=== PATIENT | male | born 1955 | race Caucasian/White ===

== ENCOUNTER → 2018-02-08 | Day surgery (SDC) | payer BC, OTHER ==
[2018-02-07 09:21] VITALS: Ht 185.4 cm; Wt 113.6 kg
[~2018-02-08] VITALS: Ht 185.4 cm; Wt 113.6 kg
[~2018-02-08] MED LIST: ARTHRITIS PAIN PO; ATROPINE SULFATE 0.1 MG/ML 5ML SYR IV PRN; EFF375 PO; EpHEDrine SULFATE INJ 50 MG/ML AMP IV PRN; INDO-24 PO; LIDOCAINE HCL 2% 2 ML VIAL (20MG/ML) ONE; MIDAZOLAM HCL 1 MG/ML 2ML VIAL ONE; ONDANSETRON INJ 2 MG/ML 2 ML VIAL ONE; PROPOFOL IV EMULSION 10 MG/ML 20 ML VIAL ONE; SODIUM CHLORIDE 0.9% 500ML 500 ML IV ONE
--- NOTE | 2018-02-08 14:13 | Endo History and Physical ---
History & Physical Date of Service: Feb 08, 2018. Chief Complaint: Screening Referring Physician: Dr Nickerson History of Present Illness Screening for colon cancer Past Medical History Arthritis, Anxiety, Other, Depression Past Surgical History Hx Cardiac Surgery: No Hx Internal Defibrillator: No Hx Pacemaker: No Hx Abdominal Surgery: Yes (HERNIA REPAIR, GEORGINA) Hx of Implantable Prosthesis: No Hx Post-Op Nausea and Vomiting: No Hx Cancer Surgery: No Hx Thoracic Surgery: No Hx Orthopedic: Yes (NECK FUSION X2, LAMINECTOMY) Hx Urinary Tract Surgery: No Family History None Social History Smoking Status: Never Smoker Hx Substance Use: No Hx Alcohol Use: No Allergies Coded Allergies: Aspirin (Verified Allergy, Unknown, UNSURE, 02/07/18) Penicillins (Verified Allergy, Unknown, UNSURE, 02/07/18) Sulfa Drugs (Verified Allergy, Unknown, MOUTH SORES, BLISTERS, 02/07/18) Current Medications Reported Home Medications Medications Dose Route/Sig Max Daily Dose Days Date Category Dose Instructions Indocin (Indomethacin) 50 Mg Cap 50 Mg PO HS 02/08/18 Reported WITH FOOD UNTIL PAIN RESOLVES Venlafaxine HCl 37.5 Mg Tab 37.5 Mg PO QHS 03/20/15 Reported Vital Signs Weight (Kilograms): 113.64 Height (Feet): 6 Height (Inches): 1 Date Time Temp Pulse Resp B/P (MAP) Pulse Ox O2 Delivery O2 Flow Rate FiO2 02/08/18 13:54 37.3 88 20 126/80 (95) 95 Room Air Physical Exam General Appearance: no apparent distress Respiratory/Chest: Auscultation: breath sounds normal Cardiovascular: Heart Auscultation: RRR Abdomen: Inspection & Palpation: non-distended Assessment and Plan Stable for Colonoscopy
--- NOTE | 2018-02-08 16:03 | Discharge Instructions ---
Endoscopy Patient Instructions Date / Procedure(s) Performed Feb 08, 2018. Colonoscopy Allergy Information Coded Allergies: Aspirin (Verified Allergy, Unknown, UNSURE, 02/07/18) Penicillins (Verified Allergy, Unknown, UNSURE, 02/07/18) Sulfa Drugs (Verified Allergy, Unknown, MOUTH SORES, BLISTERS, 02/07/18) Discharge Date / Findings Feb 08, 2018. Polyp in descending colon Cecum could not be examined due to looping Provider Instructions Activity Restrictions - No exercising or heavy lifting for 24 hours. - Do not drink alcohol the day of the procedure. - Do not drive a car or operate machinery until the day after the procedure. - Do not make any important decisions or sign important papers in 24 hours after the procedure. Following Day: - Return to full activity which may include returning to work/school. Diet Start your diet with liquids and light foods (jello, soup, juice, toast). Then eat your usual diet if not nauseated. Treatment For Common After Affects For mild abdominal pain, bloating, or excessive gas: - Rest - Eat lightly - Lie on right side Follow-Up Information Follow-up with Dr Nickerson as scheduled Will schedule for CT colography Anesthesia Information What You Should Know You have had a procedure that required some medicine to reduce anxiety and discomfort. This treatment is called moderate sedation. After receiving the treatment, you may be sleepy, but you will be able to breathe on your own. The effects of the treatment may last for several hours. Follow these instructions along with Activity/Diet recommendations noted above: * Do NOT do anything where dizziness or clumsiness would be dangerous. * Rest quietly at home today, then you can be up and about tomorrow. * Have a responsible person stay with you the rest of today. * You may have had an I.V. today. If so, you may take the dressing off later today. Recommendations Call your doctor if: * Trouble breathing * Continuous vomiting for more than 24 hours * Temperature above 101 degrees * Severe abdominal pain or bloating * Pain not relieved by pain medicine ordered * There is increased drainage or redness from any incision * A large amount of rectal bleeding greater than 2-3 tablespoons. (If you had a polyp/s removed or have hemorrhoids, a small amount of blood - from the rectum is to be expected.) * You have any unanswered questions or concerns. IN THE EVENT OF A SERIOUS EMERGENCY, GO TO THE NEAREST EMERGENCY ROOM Your discharge instructions were prepared by provider Dejan Momin. Patient Instructions Signature Page Kenan Hernandez Patient (or Guardian) Signature/Date: I have read and understand the instructions given to me by my caregivers. Caregiver/RN/Doctor Signature/Date: The above-named patient and/or guardian has received patient instructions on this date. + Original Patient Signature Page (only) stays with chart. Please make copy for patient.
--- NOTE | 2018-02-08 16:07 | GI REPORT ---
Patient Name: Kenan Hernandez Procedure Date: 02/08/2018 2:12 PM Date of : 1955 Admit Type: Outpatient Age: 62 Gender: Male Attending MD: Dejan Momin MD Procedure: Colonoscopy Providers: Dejan Momin MD Referring MD: Atif Nickerson Indications: Screening for colorectal malignant neoplasm Medicines: Monitored Anesthesia Care Complications: No immediate complications. Estimated Blood Loss: Estimated blood loss: none. Procedure: Pre-Anesthesia Assessment: - Prior to the procedure, a History and Physical was performed, and patient medications and allergies were reviewed. The patient is competent. The risks and benefits of the procedure and the sedation options and risks were discussed with the patient. All questions were answered and informed consent was obtained. Patient identification and proposed procedure were verified by the physician and the nurse in the procedure room. Mental Status Examination: alert and oriented. Airway Examination: normal oropharyngeal airway and neck mobility. Respiratory Examination: clear to auscultation. CV Examination: normal. ASA Grade Assessment: III - A patient with severe systemic disease. After reviewing the risks and benefits, the patient was deemed in satisfactory condition to undergo the procedure. The anesthesia plan was to use monitored anesthesia care (MAC). Immediately prior to administration of medications, the patient was re-assessed for adequacy to receive sedatives. The heart rate, respiratory rate, oxygen saturations, blood pressure, adequacy of pulmonary ventilation, and response to care were monitored throughout the procedure. The physical status of the patient was re-assessed after the procedure. After I obtained informed consent, the scope was passed under direct vision. Throughout the procedure, the patient's blood pressure, pulse, and oxygen saturations were monitored continuously. The scope was introduced through the anus and advanced to the ileocecal valve. The colonoscopy was technically difficult and complex due to significant looping. The patient tolerated the procedure well. The quality of the bowel preparation was good. The terminal ileum, ileocecal valve, appendiceal orifice, and rectum were photographed. Findings: The perianal and digital rectal examinations were normal. The colon (entire examined portion) revealed grossly excessive looping. A 10 mm polyp was found in the descending colon. The polyp was sessile. The polyp was removed with a hot snare. Resection and retrieval were complete. Verification of patient identification for the specimen was done by the physician and nurse using the patient's name and date. Non-bleeding internal hemorrhoids were found during retroflexion. The hemorrhoids were small. Impression: - There was significant looping of the colon, IC valve reached but could not deeply intubate the cecum. - One 10 mm polyp in the descending colon, removed with a hot snare. Resected and retrieved. - Non-bleeding internal hemorrhoids. Recommendation: - Discharge patient to home. - Await pathology results. - Schedule Ct colonography. - Repeat colonoscopy in 3 months for surveillance. - Return to referring physician. Dejan Momin MD 02/08/2018 4:07:07 PM This report has been signed electronically. Note Initiated On: 02/08/2018 2:12 PM Number of Addenda: 0 I attest to the content of the Intraoperative Record and orders documented therein, exceptions below {[id number]}
--- NOTE | 2018-02-08 16:15 | Anesthesiology Progress Note ---
Anesthesia Post Op Note Date & Time Feb 08, 2018 at 16:15 Vital Signs Vital Signs Past 12 Hours Date Time Temp Pulse Resp B/P (MAP) Pulse Ox O2 Delivery O2 Flow Rate FiO2 02/08/18 13:54 37.3 88 20 126/80 (95) 95 Room Air Notes Mental Status: alert / awake / arousable, participated in evaluation Pt Amnestic to Procedure: Yes Nausea / Vomiting: adequately controlled Pain: adequately controlled Airway Patency, RR, SpO2: stable & adequate BP & HR: stable & adequate Hydration State: stable & adequate Anesthetic Complications: no major complications apparent
[2018-02-08 16:38] VITALS: BP 127/97; PULSE 93; O2SAT 95
== END | disposition home or self-care (01) ==
LOC: C.GI 13:31
PROVIDERS: ATTEND Student in an Organized Health Care Education/Training Program
DX: Z12.11 Encounter for screening for malignant neoplasm of colon (principal); K63.5 Polyp of colon; K64.8 Other hemorrhoids; J44.9 Chronic obstructive pulmonary disease, unspecified; F32.9 Major depressive disorder, single episode, unspecified; F41.9 Anxiety disorder, unspecified; G47.33 Obstructive sleep apnea (adult) (pediatric); Z88.0 Allergy status to penicillin; Z88.2 Allergy status to sulfonamides; Z88.6 Allergy status to analgesic agent; Z87.891 Personal history of nicotine dependence; E66.9 Obesity, unspecified; Z68.33 Body mass index [BMI] 33.0-33.9, adult

== ENCOUNTER 2022-07-29 20:02 | Inpatient (IN) ==
[2022-07-29] MEDS ORDERED: ONDANSETRON INJ 2 MG/ML 2 ML VIAL IV STA (20:51)
[2022-07-29 20:53] LABS: Basophils # (auto) 0.02 K/uL (0-0.2); Basophils % (auto) 0.2 %; Eosinophils # (auto) 0.06 K/uL (0-0.50); Eosinophils % (auto) 0.7 %; Hematocrit (blood only) 46.9 % (42.0-52.0); Hemoglobin 15.7 g/dl (14.0-18.0); Immature Granulocytes # (auto) 0.03 K/uL (0.01-0.20); Immature Granulocytes % (auto) 0.4 %; Lymphocytes # (auto) 1.21 K/uL (1.2-3.4); Lymphocytes % (auto) 14.7 %; Mean Corpuscular Hgb Conc 33.5 g/dL (32.0-36.0); Mean Corpuscular Volume 92.7 fL (80.0-100.0); Mean Platelet Volume 9.6 fL (9.4-12.4); Monocytes # (auto) 0.55 K/uL (0.11-0.59); Monocytes % (auto) 6.7 %; Neutrophils # (auto) 6.37 K/uL (1.40-6.50); Neutrophils % (auto) 77.3 %; Platelet Count 200 K/uL (130-400); RDW Coefficient of Variation 12.7 % (11.5-14.5); RDW Standard Deviation 43.1 fL (36.4-46.3); Red Blood Count 5.06 M/uL (4.70-6.10); White Blood Count 8.24 K/ul (4.8-10.8)
[2022-07-29 21:07] LABS: iSTAT Creatinine 1.4 mg/dl (0.6-1.3); iSTAT Hemoglobin 16.3 g/dl (14.0-18.0); iSTAT Ionized Calcium 1.13 mmol/l (1.12-1.32); iSTAT Potassium 4.8 mmol/L (3.3-5.0)
[2022-07-29 21:21] LABS: Base Excess VBG 0.3 mEq/L; HCO3 VBG 27 mmol/L; Oxygen Saturation VBG < 60.0 %; PCO2 VBG 48 mmHg (38-50); PO2 VBG 21 mmHg; pH VBG 7.35 (7.36-7.41)
[2022-07-29 21:24] LABS: Partial Thromboplastin Ratio 0.9; Partial Thromboplastin Time 24.5 Seconds (21.0-31.0)
--- NOTE | 2022-07-29 21:36 | Emergency Department Note ---
History of Present Illness General Chief complaint: Syncope Stated complaint: Diarrhea, Nausea, Weakness Time Seen by Provider: 07/29/22 20:21 History of Present Illness Provider complaint: Nausea vomiting diarrhea Onset (ago): day(s) 1 67-year-old male with history of CKD presents emergency department with nausea vomiting diarrhea. Patient reports his symptoms began today. He also reports chills. He reports he had a syncopal episode today. He reports being shortness of breath and having cough. No chest pain. No hematuria or dysuria. No melena or hematochezia. Patient states he has been around multiple sick people in his household. Home Medications Medication Instructions Recorded Confirmed Type tamsulosin 0.4 mg capsule 0.8 mg PO QAM 02/03/21 07/29/22 History venlafaxine 37.5 mg 37.5 mg PO QAM 07/29/22 07/29/22 History capsule,extended release 24 hr Allergies Allergy/AdvReac Type Severity Reaction Status Date / Time Sulfa (Sulfonamide Allergy Intermediate MOUTH Verified 07/29/22 20:54 Antibiotics) SORES, BLISTERS aspirin Allergy Unknown Unknown--? 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 Hearing deficit History of kidney stones Osteoarthritis Surgical History History of arthroscopy of right knee meniscus repair History of bilateral cataract extraction History of cervical spinal surgery x2--normal ROM History of cholecystectomy History of colonoscopy History of left inguinal hernia repair History of lumbar laminectomy History of myringotomy x2 on right ear History of tonsillectomy History of wisdom tooth extraction Hx of vasectomy Family History Other No family history of adverse response to anesthesia Social History Smoking Status: Former smoker Tobacco Type: Cigarettes Cigarettes Per Day: 5 a day; Second Hand Exposure: No; Hx Alcohol Use: Yes Hx Substance Use: No Preferred Language: Wolof Communication Ability: Effective Vocational Training Director Required: No Beliefs That Will Affect Care: None Current Living Situation: Spouse and Family Current Living Situation Comment: Lives , 1 daughter, 2 grandkids Feels Safe at Home: Yes Assistive Devices: None Physical Exam Vital Signs Vital Signs - 24 hr 07/29/22 20:06 07/29/22 20:18 07/29/22 20:04 Temperature 36.9 C Temperature Source Oral Pulse Rate 93 H 100 H Pulse Rate from SpO2 Sensor 101 H Pulse Rhythm Regular Pulse Strength Normal Respiratory Rate 22 25 H Respiratory Effort / Characteristics Non-Labored Respiratory Depth Normal Blood Pressure 130/81 Blood Pressure Mean 97 Blood Pressure Position Sitting Pulse Oximetry 87 L 86 L 94 Oxygen Delivery Method Room Air Oxygen Flow Rate 0 Sepsis Recent Fever Within 48 Hours No Sepsis New/Unexplained Change in Mental Status N/A Sepsis Action Taken by Nursing No Action Required Oxygen Flow Rate - Titration 3 Pulse Oximetry Post Tiitration 93 07/29/22 20:10 07/29/22 20:20 07/29/22 20:30 Temperature Temperature Source Pulse Rate 94 H 97 H Pulse Rate from SpO2 Sensor 94 H 98 H Pulse Rhythm Pulse Strength Respiratory Rate 25 H 37 H Respiratory Effort / Characteristics Respiratory Depth Blood Pressure 132/76 Blood Pressure Mean 94 Blood Pressure Position Pulse Oximetry 87 L 95 Oxygen Delivery Method Oxygen Flow Rate Sepsis Recent Fever Within 48 Hours Sepsis New/Unexplained Change in Mental Status Sepsis Action Taken by Nursing Oxygen Flow Rate - Titration Pulse Oximetry Post Tiitration 07/29/22 20:30 07/29/22 20:40 07/29/22 20:50 Temperature Temperature Source Pulse Rate 98 H 91 H 107 H Pulse Rate from SpO2 Sensor 97 H 91 H 105 H Pulse Rhythm Pulse Strength Respiratory Rate 33 H 28 H 25 H Respiratory Effort / Characteristics Respiratory Depth Blood Pressure Blood Pressure Mean Blood Pressure Position Pulse Oximetry 94 96 97 Oxygen Delivery Method Nasal Cannula Nasal Cannula Oxygen Flow Rate 3 3 Sepsis Recent Fever Within 48 Hours Sepsis New/Unexplained Change in Mental Status Sepsis Action Taken by Nursing Oxygen Flow Rate - Titration Pulse Oximetry Post Tiitration 07/29/22 21:00 07/29/22 21:00 07/29/22 21:10 Temperature Temperature Source Pulse Rate 95 H 94 H Pulse Rate from SpO2 Sensor 93 H 94 H Pulse Rhythm Pulse Strength Respiratory Rate 27 H 16 Respiratory Effort / Characteristics Respiratory Depth Blood Pressure 111/81 Blood Pressure Mean 91 Blood Pressure Position Pulse Oximetry 98 99 Oxygen Delivery Method Oxygen Flow Rate Sepsis Recent Fever Within 48 Hours Sepsis New/Unexplained Change in Mental Status Sepsis Action Taken by Nursing Oxygen Flow Rate - Titration Pulse Oximetry Post Tiitration 07/29/22 21:20 07/29/22 21:30 07/29/22 21:30 Temperature Temperature Source Pulse Rate 89 100 H Pulse Rate from SpO2 Sensor 87 102 H Pulse Rhythm Pulse Strength Respiratory Rate 21 26 H Respiratory Effort / Characteristics Respiratory Depth Blood Pressure 121/76 Blood Pressure Mean 91 Blood Pressure Position Pulse Oximetry 99 99 Oxygen Delivery Method Oxygen Flow Rate Sepsis Recent Fever Within 48 Hours Sepsis New/Unexplained Change in Mental Status Sepsis Action Taken by Nursing Oxygen Flow Rate - Titration Pulse Oximetry Post Tiitration 07/29/22 21:40 07/29/22 21:50 07/29/22 22:00 Temperature Temperature Source Pulse Rate 94 H 97 H Pulse Rate from SpO2 Sensor 94 H 98 H Pulse Rhythm Pulse Strength Respiratory Rate 16 21 Respiratory Effort / Characteristics Respiratory Depth Blood Pressure 114/78 Blood Pressure Mean 90 Blood Pressure Position Pulse Oximetry 97 96 Oxygen Delivery Method Oxygen Flow Rate Sepsis Recent Fever Within 48 Hours Sepsis New/Unexplained Change in Mental Status Sepsis Action Taken by Nursing Oxygen Flow Rate - Titration Pulse Oximetry Post Tiitration 07/29/22 22:00 07/29/22 22:10 07/29/22 22:20 Temperature Temperature Source Pulse Rate 94 H 96 H 95 H Pulse Rate from SpO2 Sensor 93 H 97 H 95 H Pulse Rhythm Pulse Strength Respiratory Rate 15 21 23 Respiratory Effort / Characteristics Respiratory Depth Blood Pressure Blood Pressure Mean Blood Pressure Position Pulse Oximetry 97 97 96 Oxygen Delivery Method Oxygen Flow Rate Sepsis Recent Fever Within 48 Hours Sepsis New/Unexplained Change in Mental Status Sepsis Action Taken by Nursing Oxygen Flow Rate - Titration Pulse Oximetry Post Tiitration 07/29/22 22:45 07/29/22 22:45 07/29/22 23:24 Temperature Temperature Source Pulse Rate 105 H Pulse Rate from SpO2 Sensor 105 H Pulse Rhythm Pulse Strength Respiratory Rate 27 H Respiratory Effort / Characteristics Respiratory Depth Blood Pressure 130/81 Blood Pressure Mean 97 Blood Pressure Position Pulse Oximetry 95 95 Oxygen Delivery Method Nasal Cannula Oxygen Flow Rate 1 Sepsis Recent Fever Within 48 Hours Sepsis New/Unexplained Change in Mental Status Sepsis Action Taken by Nursing Oxygen Flow Rate - Titration Pulse Oximetry Post Tiitration 07/29/22 23:00 07/29/22 23:00 Temperature Temperature Source Pulse Rate 103 H Pulse Rate from SpO2 Sensor 103 H Pulse Rhythm Pulse Strength Respiratory Rate 15 Respiratory Effort / Characteristics Respiratory Depth Blood Pressure 112/75 Blood Pressure Mean 87 Blood Pressure Position Pulse Oximetry 93 Oxygen Delivery Method Nasal Cannula Oxygen Flow Rate 2 Sepsis Recent Fever Within 48 Hours Sepsis New/Unexplained Change in Mental Status Sepsis Action Taken by Nursing Oxygen Flow Rate - Titration Pulse Oximetry Post Tiitration Physical Exam GENERAL: ill appearing HENT: Exam performed. - Head: Normocephalic and atraumatic. EYES: Conjunctivae and EOM are normal. Right eye exhibits no discharge. Left eye exhibits no discharge. No scleral icterus. NECK: Normal range of motion. Neck supple. No JVD present. CV: Normal rate, regular rhythm, normal heart sounds and intact distal pulses. There is no peripheral edema. Palpable radial pulses bue. PULM/CHEST: Effort normal and breath sounds normal. No respiratory distress. No stridor. He has no wheezes. He has no rales. ABD: The abdomen is soft. There is no tenderness. There is no rebound, no guarding, NEURO: Motor and sensation grossly intact. SKIN: Skin is warm and dry. He is not diaphoretic. PSYCH: He has a normal mood and affect. Behavior is normal. Judgment and thought content normal. Course Course 2020: The patient was evaluated in room C9. A complete history and physical exam was performed Cardiac monitoring: An order was placed for continuous cardiac monitoring. The monitor shows a rate of 90 with sinus rhythm Patient was found to be hypoxic on room air. Supplemental oxygen was applied via nasal cannula which improved the patient's oxygen saturation. 2334: Vital signs stable on supplemental oxygen via nasal cannula. Patient reports he feels better after antiemetics. Urinalysis and stool sample still pending. Labs and imaging within normal limits including normal white blood cell count normal hemoglobin level normal coagulation studies normal VBG cardiac enzymes negative procalcitonin COVID influenza RSV negative. Imaging also negative for ICH, PE or any acute surgical pathology in the abdomen pelvis CT scan. Patient will be [facility] team Dr. Tran notified. Administered Medications Discontinued Medications Ioversol (Optiray 320 500ml) 111 ml IV ONCE ONE Stop: 07/29/22 22:44 Last Admin: 07/29/22 22:43 Dose: 111 ml Documented By: RADHA Ondansetron HCl (Ondansetron Inj 2 Mg/Ml 2 Ml Vial) 4 mg IV NOW STA Stop: 07/29/22 20:52 Last Admin: 07/29/22 20:56 Dose: 4 mg Documented By: SHANTAL Critical Care Time Critical Care Time: Yes Total Critical Care Time: 38 I have personally spent greater than 38 minutes of critical care time in the direct management of this patient. This includes bedside care, interpretation of diagnostic studies, and testing, discussion with consultants, patient, and family members, and other required patient management activities. This 38 minutes is in excess of all separately billable procedures. Medical Decision Making Laboratory Data Attestation: I reviewed the patient's lab results. 07/29/22 20:09 07/29/22 20:09 Lab Results 07/29/22 07/29/22 07/29/22 Range/Units 20:09 20:09 20:09 WBC 8.24 (4.8-10.8) K/ul RBC 5.06 (4.70-6.10) M/uL Hgb 15.7 (14.0-18.0) g/dl POC Hgb (14.0-18.0) g/dl Hct 46.9 (42.0-52.0) % POC Hct (42-52) % MCV 92.7 (80.0-100.0) fL MCH 31.0 (25.0-34.0) pg MCHC 33.5 (32.0-36.0) g/dL RDW Std Deviation 43.1 (36.4-46.3) fL RDW Coeff of Naye 12.7 (11.5-14.5) % Plt Count 200 (130-400) K/uL MPV 9.6 (9.4-12.4) fL Immature Gran % (Auto) 0.4 % Neut % (Auto) 77.3 % Lymph % (Auto) 14.7 % Holmes % (Auto) 6.7 % Eos % (Auto) 0.7 % Baso % (Auto) 0.2 % Neut # (Auto) 6.37 (1.40-6.50) K/uL Lymph # (Auto) 1.21 (1.2-3.4) K/uL Holmes # (Auto) 0.55 (0.11-0.59) K/uL Eos # (Auto) 0.06 (0-0.50) K/uL Baso # (Auto) 0.02 (0-0.2) K/uL Immature Gran # (Auto) 0.03 (0.01-0.20) K/uL PT 11.0 (9.0-12.0) Seconds INR 1.0 (0.9-1.1) APTT 24.5 (21.0-31.0) Seconds PTT Ratio 0.9 VBG pH (7.36-7.41) VBG pCO2 (38-50) mmHg VBG pO2 mmHg VBG HCO3 mmol/L VBG O2 Saturation % VBG Base Excess mEq/L POC Sodium (135-144) mmol/L Sodium 140 (136-145) mmol/L POC Potassium (3.3-5.0) mmol/L Potassium 3.9 (3.5-5.1) mmol/L POC Chloride (101-112) mmol/L Chloride 108 H (98-107) mmol/L Carbon Dioxide 23 (21-32) mmol/L POC Total CO2 (24-31) mmol/L Anion Gap 9 (3-11) POC Anion Gap (16-25) mmol/L POC BUN (7-18) mg/dl BUN 14 (6-23) mg/dl Creatinine 1.42 H (0.6-1.4) mg/dl POC Creatinine (0.6-1.3) mg/dl Est Cr Clr Drug Dosing 69.6 ml/min Est GFR ( Amer) 59.2 ml/min Est GFR (Non-Af Amer) 51.1 ml/min BUN/Creatinine Ratio 9.9 L (10-20) Glucose 152 H (70-99(Fasting)) mg/dl POC Glucose (other) (70-99) mg/dl Lactate (0.4-2.0) mmol/L Calcium 8.4 L (8.5-10.1) mg/dl POC Ioniz Calcium Cherie (1.12-1.32) mmol/l Magnesium 1.7 (1.7-2.4) mg/dl Total Bilirubin 0.8 (0.2-1.0) mg/dl Direct Bilirubin 0.2 (0-0.2) mg/dl AST 22 (13-39) U/L ALT 23 (7-52) U/L Alkaline Phosphatase 91 (34-104) U/L Troponin I High Sens 4.4 (0-20) pg/ml Total Protein 6.2 (6.0-8.3) gm/dl Albumin 4.0 (3.4-5.0) gm/dl Lipase 15 (11-82) U/L Procalcitonin (0-0.5) ng/ml SARS-CoV-2 (PCR) (Negative) Influenza Type A (PCR) (Neg) Influenza Type B (PCR) (Neg) RSV (RT-PCR) (Neg) 07/29/22 07/29/22 07/29/22 Range/Units 20:09 20:09 20:47 WBC (4.8-10.8) K/ul RBC (4.70-6.10) M/uL Hgb (14.0-18.0) g/dl POC Hgb (14.0-18.0) g/dl Hct (42.0-52.0) % POC Hct (42-52) % MCV (80.0-100.0) fL MCH (25.0-34.0) pg MCHC (32.0-36.0) g/dL RDW Std Deviation (36.4-46.3) fL RDW Coeff of Naye (11.5-14.5) % Plt Count (130-400) K/uL MPV (9.4-12.4) fL Immature Gran % (Auto) % Neut % (Auto) % Lymph % (Auto) % Holmes % (Auto) % Eos % (Auto) % Baso % (Auto) % Neut # (Auto) (1.40-6.50) K/uL Lymph # (Auto) (1.2-3.4) K/uL Holmes # (Auto) (0.11-0.59) K/uL Eos # (Auto) (0-0.50) K/uL Baso # (Auto) (0-0.2) K/uL Immature Gran # (Auto) (0.01-0.20) K/uL PT (9.0-12.0) Seconds INR (0.9-1.1) APTT (21.0-31.0) Seconds PTT Ratio VBG pH (7.36-7.41) VBG pCO2 (38-50) mmHg VBG pO2 mmHg VBG HCO3 mmol/L VBG O2 Saturation % VBG Base Excess mEq/L POC Sodium (135-144) mmol/L Sodium (136-145) mmol/L POC Potassium (3.3-5.0) mmol/L Potassium (3.5-5.1) mmol/L POC Chloride (101-112) mmol/L Chloride (98-107) mmol/L Carbon Dioxide (21-32) mmol/L POC Total CO2 (24-31) mmol/L Anion Gap (3-11) POC Anion Gap (16-25) mmol/L POC BUN (7-18) mg/dl BUN (6-23) mg/dl Creatinine (0.6-1.4) mg/dl POC Creatinine (0.6-1.3) mg/dl Est Cr Clr Drug Dosing ml/min Est GFR ( Amer) ml/min Est GFR (Non-Af Amer) ml/min BUN/Creatinine Ratio (10-20) Glucose (70-99(Fasting)) mg/dl POC Glucose (other) (70-99) mg/dl Lactate 1.1 (0.4-2.0) mmol/L Calcium (8.5-10.1) mg/dl POC Ioniz Calcium Cherie (1.12-1.32) mmol/l Magnesium (1.7-2.4) mg/dl Total Bilirubin (0.2-1.0) mg/dl Direct Bilirubin (0-0.2) mg/dl AST (13-39) U/L ALT (7-52) U/L Alkaline Phosphatase (34-104) U/L Troponin I High Sens Cancelled (0-20) pg/ml Total Protein (6.0-8.3) gm/dl Albumin (3.4-5.0) gm/dl Lipase Cancelled (11-82) U/L Procalcitonin < 0.05 (0-0.5) ng/ml SARS-CoV-2 (PCR) (Negative) Influenza Type A (PCR) (Neg) Influenza Type B (PCR) (Neg) RSV (RT-PCR) (Neg) 07/29/22 07/29/22 07/29/22 Range/Units 20:53 21:00 21:55 WBC (4.8-10.8) K/ul RBC (4.70-6.10) M/uL Hgb (14.0-18.0) g/dl POC Hgb 16.3 (14.0-18.0) g/dl Hct (42.0-52.0) % POC Hct 48 (42-52) % MCV (80.0-100.0) fL MCH (25.0-34.0) pg MCHC (32.0-36.0) g/dL RDW Std Deviation (36.4-46.3) fL RDW Coeff of Naye (11.5-14.5) % Plt Count (130-400) K/uL MPV (9.4-12.4) fL Immature Gran % (Auto) % Neut % (Auto) % Lymph % (Auto) % Holmes % (Auto) % Eos % (Auto) % Baso % (Auto) % Neut # (Auto) (1.40-6.50) K/uL Lymph # (Auto) (1.2-3.4) K/uL Holmes # (Auto) (0.11-0.59) K/uL Eos # (Auto) (0-0.50) K/uL Baso # (Auto) (0-0.2) K/uL Immature Gran # (Auto) (0.01-0.20) K/uL PT (9.0-12.0) Seconds INR (0.9-1.1) APTT (21.0-31.0) Seconds PTT Ratio VBG pH 7.35 L (7.36-7.41) VBG pCO2 48 (38-50) mmHg VBG pO2 21 mmHg VBG HCO3 27 mmol/L VBG O2 Saturation < 60.0 % VBG Base Excess 0.3 mEq/L POC Sodium 139 (135-144) mmol/L Sodium (136-145) mmol/L POC Potassium 4.8 (3.3-5.0) mmol/L Potassium (3.5-5.1) mmol/L POC Chloride 105 (101-112) mmol/L Chloride (98-107) mmol/L Carbon Dioxide (21-32) mmol/L POC Total CO2 28 (24-31) mmol/L Anion Gap (3-11) POC Anion Gap 12.0 L (16-25) mmol/L POC BUN 14 (7-18) mg/dl BUN (6-23) mg/dl Creatinine (0.6-1.4) mg/dl POC Creatinine 1.4 H (0.6-1.3) mg/dl Est Cr Clr Drug Dosing ml/min Est GFR ( Amer) ml/min Est GFR (Non-Af Amer) ml/min BUN/Creatinine Ratio (10-20) Glucose (70-99(Fasting)) mg/dl POC Glucose (other) 155 H (70-99) mg/dl Lactate (0.4-2.0) mmol/L Calcium (8.5-10.1) mg/dl POC Ioniz Calcium Cherie 1.13 (1.12-1.32) mmol/l Magnesium (1.7-2.4) mg/dl Total Bilirubin (0.2-1.0) mg/dl Direct Bilirubin (0-0.2) mg/dl AST (13-39) U/L ALT (7-52) U/L Alkaline Phosphatase (34-104) U/L Troponin I High Sens (0-20) pg/ml Total Protein (6.0-8.3) gm/dl Albumin (3.4-5.0) gm/dl Lipase (11-82) U/L Procalcitonin (0-0.5) ng/ml SARS-CoV-2 (PCR) NEGATIVE (Negative) Influenza Type A (PCR) Negative (Neg) Influenza Type B (PCR) Negative (Neg) RSV (RT-PCR) Negative (Neg) Imaging Data Attestation: I personally reviewed and interpreted this imaging study as follows: My Impression: Chest x-ray negative. Airway clear. No pneumothorax. No consolidation. No cardiomegaly or cephalization.. No free air under the diaphragm. No fractures of the skeletal structures. Radiologist's Impression: PreliminaryFindingsOnly See Final Report For Complete Findings CTACHEST: The left upper lobe pulmonarynodule stable since 2007. Right upper lobe pulm onarynodule also stable since 2007. No lobar consolidations or effusions. Mild bibasilar dependent atelectasis and basilar pleural thickening. No lobar consolidation No pulmonaryembolus. Postoperative changes prior cholecystectomy. Radiologist: Nadir James MD Study ready at 22:45 and initial results transmitted at 23:10 PreliminaryFindingsOnly See Final Report For Complete Findings CT ABDOMEN & PELVIS With Contrast: Postoperative changes prior cholecystectomy. Both kidneys opacifywith and excrete contrast into normal and symmetric fashion. No free air or intestinal obstruction identified on this exam. Radiologist: Nadir Nettles MD Study ready at 22:59 and initial results transmitted at 23:11 PreliminaryFindingsOnly See Final Report For Complete Findings CT HEAD: Head CT negative for acute intracranial abnormality. Right maxillarysinus inflammatorypolyp Radiologist: Nadir James MD Study ready at 22:45 and initial results transmitted at 22:56 ECG Data Attestation: I personally reviewed and interpreted this ECG as follows: Indication: + SOB/dyspnea Rate (beats per minute): 95 Rhythm: + normal sinus ECG Intervals/blocks: + Normal DE and + Normal QT-c ECG ST segments: + Normal ST segments Additional Comments: QRS 70. S1Q3T3 pattern. [facility] Narrative 2020: The patient was evaluated in room C9. A complete history and physical exam was performed Cardiac monitoring: An order was placed for continuous cardiac monitoring. The monitor shows a rate of 90 with sinus rhythm Patient was found to be hypoxic on room air. Supplemental oxygen was applied via nasal cannula which improved the patient's oxygen saturation. 2334: Vital signs stable on supplemental oxygen via nasal cannula. Patient reports he feels better after antiemetics. Urinalysis and stool sample still pending. Labs and imaging within normal limits including normal white blood cell count normal hemoglobin level normal coagulation studies normal VBG cardiac enzymes negative procalcitonin COVID influenza RSV negative. Imaging also negative for ICH, PE or any acute surgical pathology in the abdomen pelvis CT scan. Patient will be [facility] team Dr. Tran notified. Impression & Plan Hypoxia, Nausea and vomiting Discharge Plan Visit Data Chief Complaint: Syncope Stated Complaint: Diarrhea, Nausea, Weakness ED Provider: Isidro Stockton Discharge Problem: Hypoxia, Nausea and vomiting Patient Disposition: Admitted As Inpatient Forms Stand Alone Forms: [facility] Prescriptions Prescriptions: No Action venlafaxine 37.5 mg capsule,extended release 24hr 37.5 mg PO QAM tamsulosin 0.4 mg Capsule 0.8 mg PO QAM Referrals Referrals: Atif Nickerson MD [Primary Care Provider] -
[2022-07-29 22:00] LABS: BUN Creatinine Ratio 9.9 (10-20); Bilirubin Direct 0.2 mg/dl (0-0.2); Bilirubin,Total 0.8 mg/dl (0.2-1.0); Calcium 8.4 mg/dl (8.5-10.1); Creatinine Clr Calc Pharmacy 69.6 ml/min; Est GFR (African American) 59.2 ml/min; Est GFR (Non-African American) 51.1 ml/min; Magnesium 1.7 mg/dl (1.7-2.4); Potassium 3.9 mmol/L (3.5-5.1); Total Protein 6.2 gm/dl (6.0-8.3); Troponin I High Sensitivity 4.4 pg/ml (0-20)
[2022-07-29] MEDS ORDERED: OPTIRAY 320 500ml IV ONE (22:43)
[2022-07-29 22:52] LABS: Influenza A virus by PCR Negative (Neg); Influenza B virus by PCR Negative (Neg); RSV by PCR Negative (Neg); SARS CoV2 RNA(COVID-19) Ceph NEGATIVE (Negative)
[2022-07-29] MEDS ORDERED: SODIUM CHLORIDE 0.9% 1000ML 1,000 ML IV SCH (23:45)
[2022-07-30 00:13] LABS: Appearance Urine Clear (Clear); Bacteria Urine Automated Negative (Negative); Bilirubin Urine Negative (Negative); Blood Urine Negative (Negative); Color Urine Yellow; Glucose Urine UA Negative (Negative); Ketones Urine 1+ (Negative); Leukocyte Esterase Urine Negative (Negative); Nitrite Urine Negative (Negative); Protein Urine Trace (Negative); RBC Urine Automated 0-4 /hpf (0-4); Specific Gravity Urine > 1.045 (1.000-1.030); Urobilinogen Urine Negative (Negative); pH Urine 5.5 (4.5-7.5)
[2022-07-30] MEDS ORDERED: ONDANSETRON INJ 2 MG/ML 2 ML VIAL IV PRN (01:19)
[2022-07-30] MEDS ORDERED: ACETAMINOPHEN 325 MG TAB PO PRN (01:19)
[2022-07-30] MEDS ORDERED: NITROGLYCERIN SL 0.4 MG/TAB TAB SL PRN (01:19)
--- NOTE | 2022-07-30 02:58 | History and Physical Report ---
DATE OF ADMISSION: 07/30/2022. CHIEF COMPLAINT: Syncope. HISTORY OF PRESENT ILLNESS: This is a 67-year-old male with a past medical history significant for stage III chronic kidney disease, cervical spondylosis, generalized osteoarthritis, difficult intubation, anxiety, panic disorder, history of tobacco abuse, currently not smoking, presents with syncope. The patient felt nauseous today morning and later in the evening around 8:00 p.m., he had a lot of vomiting and also several episodes of watery diarrhea 4-5 times and he was feeling very cold. He tried a jacket, then he felt very hot, he took off his jacket, then he felt very profusely sweating and he passed out, and when he woke up, he was confused for 2 to 3 minutes. Then ambulance was called and brought in here. When he came in, he was hypoxic at 86% to 87% on room air and currently on 1 liter he is saturating okay. The patient thinks when he vomited, his throat closed , which caused his hypoxia, but he does not feel any shortness of breath. No headache, no dizziness, no blurred visions, no earache, no runny nose, no sore throat. He has some cough with some phlegm starting today. Denies any fevers. No chest pain. Currently, no shortness of breath, no abdominal pain, no blood in the stools, the stools were a bit dark as per patient. Normal micturition. No swelling in the legs. Before all this happened he was active as per patient. The patient says he ate some frozen [place]ian food today, but also he says since last 1 week his daughter and grandkids with whom he lives , one after the other became sick, with nausea and vomiting. Currently, resting comfortably and hemodynamically stable. ALLERGIES: SULFA ANTIBIOTICS, ASPIRINS, PENICILLINS. PAST MEDICAL HISTORY: As mentioned above. PAST SURGICAL HISTORY: Spine surgery, colonoscopy, laparoscopic cholecystectomy, lumbar hemilaminectomy, cervical spine surgery, cataract surgery, tonsillectomy, adenoidectomy, inguinal hernia repair. MEDICATIONS: The patient is on Flomax 0.8 mg p.o. a.m., venlafaxine 37.5 mg p.o. a.m. FAMILY HISTORY: Significant for mother has lung disorder, father has rheumatoid arthritis, sister has pancreatic cancer, daughter has depression, maternal grandmother has dementia, paternal grandfather has stroke. SOCIAL HISTORY: . Quit smoking in October 2021. Smoked 1 pack a day for 30 years. Alcohol, rare, no drug use. REVIEW OF SYSTEMS: As per HPI. Rest of the review of systems is negative. PHYSICAL EXAMINATION: GENERAL: The patient is obese, not in acute distress. VITAL SIGNS: Temperature 36.9, pulse 103, respiratory rate 15, blood pressure 112/75, oxygen 95% on 1 liter. HEENT: Pupils equal, round, and reactive to light. Oral mucosa moist. NECK: No JVD, no neck masses. CARDIOVASCULAR: S1 and S2 heard. Regular rate and rhythm. No murmur, no gallop. RESPIRATORY SYSTEM: Normal AP diameter. No accessory muscle use. No wheezing or crackles. ABDOMEN: Soft, bowel sounds present, nontender, no distention. CENTRAL NERVOUS SYSTEM: Alert and oriented. Speech is clear. No facial droop. Obeys simple commands. Moves extremities. EXTREMITIES: No edema, no erythema. LABORATORY DATA: WBC 8.2, hemoglobin 15.7, hematocrit 46.9, platelets 200. PT 11, INR 1, APTT 24.5. VBG: pH of 7.35, pCO2 of 48, pO2 of 21. Sodium 140, potassium 3.9, chloride 108, bicarbonate 25, BUN 14, creatinine 1.4, serum glucose 152. Lactate 1.1, calcium 8.4, magnesium 1.7, total bilirubin 0.8, direct bilirubin 0.2, AST 22, ALT 23, alkaline phosphatase 91. Troponin I high sensitivity 4.4, lipase 15. Procalcitonin less than 0.05. Urinalysis negative. SARS-CoV-2 PCR negative. Influenza A and B PCR negative. RSV PCR negative. IMAGING DATA: CT of the head, preliminary report, no acute findings,. Chest CTA, preliminary report, no acute findings. Left upper lobe pulmonary nodule, stable since 2007. Right upper lobe pulmonary nodule, also stable since 2007. CT of abdomen and pelvis with IV contrast, preliminary report, no acute findings. Chest x-ray, no acute findings. EKG: Normal sinus rhythm at a rate of 95. T-wave inversions in inferior leads. ASSESSMENT AND PLAN: This is a 67-year-old male, who presents with syncope. 1. Syncope, probably orthostatic because of nausea, vomiting, diarrhea. Will give IV fluids. Will monitor in tele floor. Will check orthostatics. Will get an echocardiogram, serial cardiac enzymes, and consult cardiology in the a.m. for further recommendations. 2. Nausea, vomiting, and diarrhea: Possibly gastroenteritis. Will follow the stool cultures. Getting fluids. Will keep him on a clear liquid diet for now. 3. Hypoxia: The patient was 86% to 87% on room air when he came in; on 1 liter, he is saturating fine. The patient has a history of smoking, smoked 1 pack a day for 30 years, but quit in October 2021. No obvious wheezing currently, possibly aspiration. Will monitor for now, 4. Benign prostatic hypertrophy: Continue Flomax. 5. Anxiety, panic disorder: Continue venlafaxine. 6. Chronic kidney disease stage III: Presents with a creatinine of 1.4, seemed to be stable. Will follow the repeat labs. 7. Deep venous thrombosis prophylaxis: Sequential compression devices for now. DISPOSITION: Monitor in the tele floor. Level 1 full code. Expect to discharge home and follow with family doctor. PT/OT prior to discharge. Social service to help with discharge planning. Job ID: [id number] [facility]
[2022-07-30] MEDS: SODIUM CHLORIDE 0.9% 1000ML 1,000 ML IV SCH ×2 (05:54→11:56)
[2022-07-30 06:23] LABS: Basophils # (auto) 0.02 K/uL (0-0.2); Basophils % (auto) 0.3 %; Eosinophils # (auto) 0.01 K/uL (0-0.50); Eosinophils % (auto) 0.1 %; Hematocrit (blood only) 43.6 % (42.0-52.0); Hemoglobin 14.5 g/dl (14.0-18.0); Immature Granulocytes # (auto) 0.02 K/uL (0.01-0.20); Immature Granulocytes % (auto) 0.3 %; Lymphocytes # (auto) 0.75 K/uL (1.2-3.4); Lymphocytes % (auto) 9.6 %; Mean Corpuscular Hgb Conc 33.3 g/dL (32.0-36.0); Mean Corpuscular Volume 93.4 fL (80.0-100.0); Mean Platelet Volume 9.4 fL (9.4-12.4); Monocytes # (auto) 0.53 K/uL (0.11-0.59); Monocytes % (auto) 6.8 %; Neutrophils # (auto) 6.49 K/uL (1.40-6.50); Neutrophils % (auto) 82.9 %; Platelet Count 206 K/uL (130-400); RDW Coefficient of Variation 12.8 % (11.5-14.5); RDW Standard Deviation 43.6 fL (36.4-46.3); Red Blood Count 4.67 M/uL (4.70-6.10); White Blood Count 7.82 K/ul (4.8-10.8)
[2022-07-30 06:34] LABS: BUN Creatinine Ratio 10.9 (10-20); Est GFR (African American) 61.9 ml/min; Est GFR (Non-African American) 53.4 ml/min; Magnesium 1.7 mg/dl (1.7-2.4); Potassium 4.2 mmol/L (3.5-5.1)
[2022-07-30 06:42] LABS: Troponin I High Sensitivity 5.1 pg/ml (0-20)
--- NOTE | 2022-07-30 07:01 | CT Scan Report ---
CT SCAN OF THE BRAIN WITHOUT IV CONTRAST CLINICAL HISTORY: Syncope. Vomiting. COMPARISON STUDY: No priors. TECHNIQUE: Unenhanced axial CT scan of the brain is performed from the vertex to the skull base. A d ose lowering technique was utilized adhering to the principles of ALARA. FINDINGS: Brain parenchyma: The brain parenchyma is normal in appearance. There is no hemorrhage, mass effect, or evidence of acute territorial ischemia by CT criteria. Min-white matter differentiation is preser felice. No extra-axial fluid collection is seen. Ventricles, sulci, cisterns: Normal in configuration. Intracranial vasculature: The visualized intracranial vasculature at the skull base is normal in appe arance. Calvarium: There is no depressed calvarial fracture. Sinuses and mastoids: A 14 mm retention cyst is noted in the right maxillary antrum. The paranasal si nuses are otherwise clear. The mastoid air cells are well pneumatized. Orbits: The bony orbits are grossly intact. There are bilateral ocular lens implants. IMPRESSION: No acute intracranial abnormality. ACT 112: Negative or not required by law. Electronically signed by: Avel Yousif M.D. 07/30/2022 7:00 AM
--- NOTE | 2022-07-30 07:33 | Cardiology Consultation ---
Date of Consultation July 30, 2022 Assessment & Plan (1) Syncope: (2) Nausea and vomiting: (3) Hypoxia: Plan 67-year-old male who initially presented to the [facility] emergency department due to an episode of syncope following multiple episodes of nausea, vomiting, and diarrhea. Past medical history significant for CKD which has remained stable. EKG and telemetry has been unrevealing. Negative orthostatic BP noted. HS trop negative x2 Echo pending. Symptoms improved with nausea meds and IV hydration. Hypoxia- since resolved, ? mild aspiration with vomiting. Patient seems to be low risk for ACS/Cardiovascular event- likely syncope in the setting of volume depletion from GI distress/?Gastritis. Case discussed with Dr. Doyle- no further cardiology recommendations at this time. Can consider outpatient zio monitor to assess for any sustained or concerning arrhythmias. Supervising Physician Co-Signing Physician Notes Cardiology attending: I personally performed a history and physical exam. Agree with findings and plan as outlined by MARVIN Brown with additions as noted below. Subjective: Patient feeling well upon my reassessment on 07/30/2022 at 5:46 PM. No lightheadedness or dizziness, GI upset improved. Telemetry reveals sinus rhythm in the 80s. Exam: Cardiovascular regular -regular rhythm no murmurs, no edema Data: Echocardiogram with EF, no significant valvular heart disease Impression: As noted above. Continue supportive care for illness. History of Present Illness Reason for Consultation: Syncope Requesting Physician: Austin durbin Attending Physician: Hyun Simons MD History of Present Illness 67-year-old male who initially presented to the [facility] emergency department due to an episode of syncope. Yesterday and early in 2 this morning patient was having episodes of nausea, vomiting, and diarrhea. Started to develop chills. When he went to warm himself up with multiple jackets and sweatshirts he became very hot and started profusely sweating. He then passed out- per the patient he also vomited at this time, but has no recollection of doing so. He awoke very confused- worried that he had a stroke. summoned EMS. Found to be hypoxic with oxygen levels around 86 to 87% on room air- does not usually require supplemental o2. His household consists of himself, , daughter, and 2 grandchildren. Recently both grandchildren and his daughter have been sick with the "stomach bug" with multiple bouts of diarrhea and vomiting. ? Questionable gastritis, patient was hydrated with IV fluids. Of note, he has also been cleaning out his basement- lots of mold, he is worried about a mold infection. Upon entrance into the room patient resting comfortably in bed. No shortness of breath, not requiring supplemental o2. No chest pain. Denies any further episodes of lightheadedness/syncope. No fever or chills. Nursing completed orthostatic BPs which were negative (~113,116,127 SBP noted) heart rates 90-100s. No further GI complaints. States he is feeling much better after he received nausea medication and fluids. No history of AK, CVA, rheumatic heart disease. EKG 07/29: Normal sinus rhythm, 95 bpm, nonspecific ST/T wave abnormalities. Labs: CBC stable, renal function stable-creatinine 1.42>>1.37 (at baseline), potassium and magnesium normal. Troponin negative x2 (4.4>>5.1) Chest x-ray: unremarkable Abdomen/pelvis CT: 1. No acute infectious or inflammatory findings are identified in the abdomen or pelvis. 2. Low suspicion subcentimeter pulmonary and pleural-based nodules are noted at the lung bases. See report of chest CT performed concurrently. 3. No bowel obstruction. Chest CTA: 1. No evidence for a pulmonary embolus. No evidence for an aortic dissection. Multiple scattered subcentimeter pulmonary nodules which appear stable compared to the 2019 examination. Therefore, these are likely benign. Small patchy ground glass densities within the lung bases favor mild dependent change. A low-grade pneumonitis could also have a similar appearance in the appropriate clinical setting 5. Mild chronic interstitial thickening is noted. Head CT: No acute intracranial abnormalities Telemetry: SR/ST 80-100s Past medical history: CKD stage III-follows with [facility] nephrology Anxiety/depression Former tobacco use 1 pack/day x30 years, quit 10/2021 Allergies Allergy/AdvReac Type Severity Reaction Status Date / Time Sulfa (Sulfonamide Allergy Intermediate MOUTH Verified 07/29/22 20:54 Antibiotics) SORES, BLISTERS aspirin Allergy Unknown Unknown--? 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 Hearing deficit History of kidney stones Osteoarthritis Surgical History History of arthroscopy of right knee meniscus repair History of bilateral cataract extraction History of cervical spinal surgery x2--normal ROM History of cholecystectomy History of colonoscopy History of left inguinal hernia repair History of lumbar laminectomy History of myringotomy x2 on right ear History of tonsillectomy History of wisdom tooth extraction Hx of vasectomy Family History Other No family history of adverse response to anesthesia Social History Smoking Status: Never smoker Tobacco Type: Cigarettes Cigarettes Per Day: 5 a day; Second Hand Exposure: No; Hx Alcohol Use: Yes Hx Substance Use: No Preferred Language: Dominican Communication Ability: Effective [employer] Store Manager Required: No Beliefs That Will Affect Care: None Current Living Situation: Spouse Current Living Situation Comment: Lives , 1 daughter, 2 grandkids Other Information That Helps Us Care for You: No Feels Safe at Home: Yes Safety Concerns: Feels Safe At This Time Assistive Devices: None Review of Systems Review of Systems: All systems reviewed & are unremarkable except as noted in HPI & below Physical Exam Constitutional: WD/WN, vitals as above Eyes: PERRL, conjunctivae normal, anicteric sclerae Neck: normal visual inspection and trachea midline Respiratory: normal respiratory effort, lungs clear to auscultation Cardiovascular: RRR, no murmur, no edema Heart Sounds: normal S1 and normal S2; no murmur Vessels: no JVD Extremities: no edema Gastrointestinal (Abdomen): Inspection/Auscultation: abdomen normal to inspection and + hyperactive bowel sounds; abdomen not distended and no abdominal edema Percussion/Palpation: abdomen soft; abdomen nontender Musculoskeletal: no cyanosis or clubbing, extremities motor strength 5/5 Skin: no rashes, warm and dry Psychiatric: A+Ox3, euthymic affect Results & Data ([facility]) Vital Signs (Past 12 Hours) Vital Signs Temp Pulse Resp BP Pulse Ox O2 Del Method O2 Flow Rate 07/30/22 06:00 98 H 8 L 96 07/30/22 06:00 116/73 07/30/22 05:50 101/68 07/30/22 05:50 92 H 7 L 95 07/30/22 05:30 92 H 19 93 07/30/22 05:30 111/77 07/30/22 06:27 Nasal Cannula 2 07/30/22 06:27 95 H 07/30/22 06:24 37.5 C 07/30/22 05:16 Nasal Cannula 2 07/30/22 05:00 93 H 19 107/71 94 Nasal Cannula 2 07/30/22 03:30 100 H 15 119/65 93 Nasal Cannula 2 07/30/22 02:30 97 H 21 129/83 94 Nasal Cannula 2 07/30/22 00:30 105 H 25 H 107/71 95 Nasal Cannula 2 07/29/22 23:30 103 H 18 103/85 96 Nasal Cannula 2 07/30/22 03:05 Nasal Cannula 2 07/29/22 23:00 103 H 15 93 Nasal Cannula 2 07/29/22 23:00 112/75 07/29/22 23:24 95 Nasal Cannula 1 07/29/22 22:45 105 H 27 H 95 07/29/22 22:45 130/81 07/29/22 22:20 95 H 23 96 07/29/22 22:10 96 H 21 97 07/29/22 22:00 94 H 15 97 07/29/22 22:00 114/78 07/29/22 21:50 97 H 21 96 07/29/22 21:40 94 H 16 97 07/29/22 21:30 100 H 26 H 99 07/29/22 21:30 121/76 07/29/22 21:20 89 21 99 07/29/22 21:10 94 H 16 99 07/29/22 21:00 95 H 27 H 98 07/29/22 21:00 111/81 07/29/22 20:50 107 H 25 H 97 07/29/22 20:40 91 H 28 H 96 Nasal Cannula 3 07/29/22 20:30 98 H 33 H 94 Nasal Cannula 3 07/29/22 20:30 132/76 07/29/22 20:20 97 H 37 H 95 07/29/22 20:10 94 H 25 H 87 L 07/29/22 20:04 100 H 25 H 94 07/29/22 20:18 86 L Room Air 0 07/29/22 20:06 36.9 C 93 H 22 130/81 87 L Laboratory Results Cardiac Enzymes 07/29/22 07/29/22 07/30/22 Range/Units 20:09 20:09 05:36 AST 22 (13-39) U/L Troponin I High Sens 4.4 Cancelled 5.1 (0-20) pg/ml Coagulation 07/29/22 Range/Units 20:09 PT 11.0 (9.0-12.0) Seconds APTT 24.5 (21.0-31.0) Seconds CBC 07/29/22 07/30/22 Range/Units 20:09 05:36 WBC 8.24 7.82 (4.8-10.8) K/ul RBC 5.06 4.67 L (4.70-6.10) M/uL Hgb 15.7 14.5 (14.0-18.0) g/dl Hct 46.9 43.6 (42.0-52.0) % Plt Count 200 206 (130-400) K/uL Neut # (Auto) 6.37 6.49 (1.40-6.50) K/uL Lymph # (Auto) 1.21 0.75 L (1.2-3.4) K/uL Sullivan # (Auto) 0.55 0.53 (0.11-0.59) K/uL Eos # (Auto) 0.06 0.01 (0-0.50) K/uL Baso # (Auto) 0.02 0.02 (0-0.2) K/uL Comprehensive Metabolic Panel 07/29/22 07/30/22 Range/Units 20:09 05:36 Sodium 140 138 (136-145) mmol/L Potassium 3.9 4.2 (3.5-5.1) mmol/L Chloride 108 H 109 H (98-107) mmol/L Carbon Dioxide 23 24 (21-32) mmol/L BUN 14 15 (6-23) mg/dl Creatinine 1.42 H 1.37 (0.6-1.4) mg/dl Glucose 152 H 108 H (70-99(Fasting)) mg/dl Calcium 8.4 L 8.0 L (8.5-10.1) mg/dl Direct Bilirubin 0.2 (0-0.2) mg/dl AST 22 (13-39) U/L ALT 23 (7-52) U/L Alkaline Phosphatase 91 (34-104) U/L Total Protein 6.2 (6.0-8.3) gm/dl Albumin 4.0 (3.4-5.0) gm/dl Intake and Output 07/29/22 07/30/22 07/30/22 22:59 06:59 14:59 Intake Total 400 / 400 Output Total 250 / 250 Balance 400 / 150 -250 / 150 Intake: IV 400 / 400 Left Antecubital 400 / 400 Output: Urine 250 / 250 Other: Weight 120.5 kg 120 kg Weight Measurement Method Built in [facility] Built in [facility] (1) Nausea and vomiting Vomiting type: unspecified Qualified Code(s): R11.2 - Nausea with vomiting, unspecified
--- NOTE | 2022-07-30 07:36 | CT Scan Report ---
CHEST CTA for PULMONARY ARTERIES CT DOSE: HISTORY: Syncope. Shortness of breath. TECHNIQUE: Multiaxial CT images of the chest were performed following the intravenous administration of contrast to evaluate the pulmonary arteries. Maximal intensity projection images were also obtaine d. A dose lowering technique was utilized adhering to the principles of ALARA. COMPARISON STUDY: Chest CTA 08/20/2008. FINDINGS: Partially visualized cervical spinal fusion hardware is noted. No acute fractures. No pneum othorax. The central airways are patent. Stable 4 mm nodule within the left upper lobe on image 253 a nd a stable 3 mm nodule within the right upper lobe on image 142. A stable 6 mm subpleural nodule wit hin the left upper lobe on image 241. Stable 3 mm subpleural nodule within the left lower lobe on mario alberto ge 97. Stable 3 mm subpleural nodule within the left lower lobe on image 159. Stable 5 mm subpleural nodule within the left lower lobe on image 187. Stable 5 mm subpleural nodule along the right minor f issure on image 151. Patchy groundglass densities within the lung bases favor mild dependent change. A low-grade pneumonitis could also have a similar appearance. A few subcentimeter subpleural nodules within the right lower lobe posteriorly appears stable. Mild peripheral interstitial thickening which is likely chronic. The visualized liver and spleen are unremarkable. Prior cholecystectomy. No media stinal or hilar lymphadenopathy. The heart is normal in size. No pleural or pericardial effusions. No evidence for an aortic dissection. No filling defects within the pulmonary arteries to suggest a pul monary embolus. IMPRESSION: 1. No evidence for a pulmonary embolus. 2. No evidence for an aortic dissection. 3. Multiple scattered subcentimeter pulmonary nodules which appear stable compared to the 2019 examin ation. Therefore, these are likely benign. 4. Small patchy groundglass densities within the lung bases favor mild dependent change. A low-grade pneumonitis could also have a similar appearance in the appropriate clinical setting. 5. Mild chronic interstitial thickening is noted. ACT 112: Negative or not required by law. Electronically signed by: Arnulfo Noel M.D. 07/30/2022 7:34 AM
--- NOTE | 2022-07-30 07:54 | CT Scan Report ---
CT SCAN OF THE ABDOMEN AND PELVIS WITH IV CONTRAST CLINICAL HISTORY: Syncope. Vomiting. COMPARISON STUDY: Abdominal CT dated 08/21/2008. TECHNIQUE: Following the IV administration of 111 cc of Optiray 320, CT scan of the abdomen and pelv is is performed from the lung bases to the proximal femora. Images are reviewed in the axial, sagitta l, and coronal planes. IV contrast was administered without complication. A dose lowering technique w as utilized adhering to the principles of ALARA. CT DOSE: 3708.48 mGy.cm FINDINGS: Lung bases: The heart is top normal in size and without pericardial effusion. There are coronary lorri ry calcifications. There is a 4 mm pleural-based nodule in the right middle lobe along the minor fiss ure seen on image #35. A 4 mm left basilar pulmonary nodule is seen on image #145 and a 3 mm pleural- based nodule in the left lower lobe along the major fissure as seen on image #33. Tree in bud airspac e opacities are seen at the left lung base. There is bibasilar scarring/atelectasis. No pleural effus ion is identified. There is a tiny hiatal hernia. Liver: The contrast-enhanced liver is normal in size, contour, and attenuation. There is no intrahepa tic biliary ductal dilatation. The hepatic veins and portal veins are patent. A 1.6 cm cyst is noted in the left lobe. Gallbladder: Surgically absent and clips in the gallbladder fossa. Spleen: Normal in size and attenuation. Pancreas: Unremarkable. Adrenal glands: Unremarkable. Kidneys: The contrast enhanced kidneys are normal in size and without hydronephrosis. The kidneys enh ance and excrete symmetrically. Abdominal vasculature: The abdominal aorta is normal in course and caliber. Bowel: There is no bowel obstruction. The appendix is well-visualized and normal. Peritoneum: There is no intraperitoneal free air or abdominal ascites. Lymphadenopathy: None. Pelvic viscera: The prostate gland is mildly enlarged and heterogeneous. The bladder is partially dec ompressed and grossly unremarkable. There is a fat-containing right adrenal hernia. Surgical clips ar e noted along the spermatic cord. Skeletal structures: The skeletal structures appear osteopenic. There is lumbosacral spondylosis with postlaminectomy change noted in the lumbar spine. No lytic or blastic lesions are seen. There is tanner scular necrosis of the left femoral head. IMPRESSION: 1. No acute infectious or inflammatory findings are identified in the abdomen or pelvis. 2. Low suspicion subcentimeter pulmonary and pleural-based nodules are noted at the lung bases. See r eport of chest CT performed concurrently. 3. No bowel obstruction. 4. Additional findings as above. ACT 112: Negative or not required by law. Electronically signed by: Avel Yousif M.D. 07/30/2022 7:53 AM
--- NOTE | 2022-07-30 08:34 | XRay Report ---
XR chest 1V portable HISTORY: Shortness of breath. COMPARISON: Chest 08/20/2008. FINDINGS: Cervical spinal fusion hardware is partially visualized. Mild interstitial thickening which is likely chronic. No focal lung consolidations to suggest a pneumonia. No evidence for pulmonary ed aaron. The heart is mildly enlarged. IMPRESSION: No acute process. ACT 112: Negative or not required by law. Electronically signed by: Arnulfo Noel M.D. 07/30/2022 8:33 AM
[2022-07-30] MEDS: VENLAFAXINE HCL XR 37.5 MG CAPXR PO SCH (08:59)
[2022-07-30] MEDS: TAMSULOSIN HCL 0.4 MG CAP PO SCH (09:00)
--- NOTE | 2022-07-30 13:54 | Hospitalist Progress Note ---
Date of Service July 30, 2022 Assessment & Plan (1) Syncope: Plan: He was admitted with syncopal episode following bouts of gastroenteritis associated with nausea vomiting and diarrhea Has been feeling much better since admission No arrhythmias identified and no ACS and no orthostatic changes are noted Syncope was likely secondary to vasovagal due to dehydration We will get PT and OT evaluation and possible discharge tomorrow (2) Gastroenteritis: Plan: Gastroenteritis in the family Has had an attack of gastroenteritis yesterday with associated syncope as mentioned earlier (3) Nausea and vomiting: Plan: Secondary to gastroenteritis which has resolved (4) Hypoxia: Plan: Possible mild aspiration from vomiting Does not require any treatment Condition resolved (5) Chronic kidney disease, stage 3: Plan: Kidney function is minimally better following fluid administration (6) Generalized anxiety disorder with panic attacks: Plan: Continue current medications (7) BPH (benign prostatic hyperplasia): Plan DVT prophylaxis Subcu heparin CODE STATUS Full Admission and Anticipated Discharge Date Admission Date: July 30, 2022 Subjective 07/30/2022 The patient was seen and examined in ICU He has been feeling much better since admission Denies any more nausea, vomiting or diarrhea since admission No more syncope and no arrhythmias identified Review of Systems Review of Systems: All systems reviewed and are unremarkable except as noted below Respiratory: No shortness of breath Cardiovascular: Additional Comments: No palpitation and/or chest pain Gastrointestinal: Denies any nausea and/or vomiting Physical Exam Physical Exam: Lying in bed comfortably with flushed facies Constitutional: well developed, well nourished, + ill appearing and + obese Eyes: PERRL, conjunctivae normal, anicteric sclerae ENMT: external ear and nose normal, oropharynx normal Neck: trachea midline, no thyromegaly Respiratory: normal respiratory effort, lungs clear to auscultation Cardiovascular: Rate/Rhythm: regular rate and regular rhythm; not tachycardic Heart Sounds: normal S1 and normal S2; no murmur Extremities: no edema Gastrointestinal (Abdomen): Inspection/Auscultation: normal bowel sounds; abdomen not distended Percussion/Palpation: abdomen soft; abdomen nontender Musculoskeletal: No acute arthritis involving any joint Neurologic: normal touch/pain/proprioception, moves all extremities and + focal motor deficit Psychiatric: A+Ox3, euthymic affect Lymphatic: no cervical or axillary lymphadenopathy Results & Data Results & Data ([facility]) Vital Signs (Past 12 Hours) Vital Signs Temp Pulse Pulse Resp BP BP Pulse Ox 07/30/22 08:00 95 H 07/30/22 09:14 95 07/30/22 08:40 07/30/22 07:00 37.0 C 100 H 22 130/72 95 07/30/22 06:00 98 H 8 L 96 07/30/22 06:00 116/73 07/30/22 05:50 101/68 07/30/22 05:50 92 H 7 L 95 07/30/22 05:30 92 H 19 93 07/30/22 05:30 111/77 07/30/22 06:27 07/30/22 06:27 95 H 07/30/22 06:24 37.5 C 07/30/22 05:16 07/30/22 05:00 93 H 19 107/71 94 07/30/22 03:30 100 H 15 119/65 93 07/30/22 02:30 97 H 21 129/83 94 07/30/22 03:05 O2 Del Method O2 Flow Rate 07/30/22 08:00 07/30/22 09:14 Room Air 07/30/22 08:40 Nasal Cannula 2 07/30/22 07:00 Nasal Cannula 2 07/30/22 06:00 07/30/22 06:00 07/30/22 05:50 07/30/22 05:50 07/30/22 05:30 07/30/22 05:30 07/30/22 06:27 Nasal Cannula 2 07/30/22 06:27 07/30/22 06:24 07/30/22 05:16 Nasal Cannula 2 07/30/22 05:00 Nasal Cannula 2 07/30/22 03:30 Nasal Cannula 2 07/30/22 02:30 Nasal Cannula 2 07/30/22 03:05 Nasal Cannula 2 Laboratory Results Short CBC 07/29/22 07/30/22 Range/Units 20:09 05:36 WBC 8.24 7.82 (4.8-10.8) K/ul Hgb 15.7 14.5 (14.0-18.0) g/dl Hct 46.9 43.6 (42.0-52.0) % Plt Count 200 206 (130-400) K/uL BMP 07/29/22 07/30/22 20:09 05:36 Sodium 140 138 Potassium 3.9 4.2 Chloride 108 H 109 H Carbon Dioxide 23 24 BUN 14 15 Creatinine 1.42 H 1.37 Glucose 152 H 108 H Calcium 8.4 L 8.0 L Liver Function 07/29/22 Range/Units 20:09 Total Bilirubin 0.8 (0.2-1.0) mg/dl Direct Bilirubin 0.2 (0-0.2) mg/dl AST 22 (13-39) U/L ALT 23 (7-52) U/L Alkaline Phosphatase 91 (34-104) U/L Albumin 4.0 (3.4-5.0) gm/dl Urine 07/29/22 Range/Units 23:16 Urine Color Yellow Urine Appearance Clear (Clear) Urine pH 5.5 (4.5-7.5) Ur Specific [place] > 1.045 H (1.000-1.030) Urine Protein Trace H (Negative) Urine Glucose (UA) Negative (Negative) Medications Administered Current Inpatient Medications Acetaminophen (Acetaminophen 325 Mg Tab) 650 mg PO Q4H PRN PRN Reason: Pain or Fever Stop: 08/29/22 01:18 Sodium Chloride (Nss 1000ml) 1,000 mls @ 100 mls/hr IV .Q10H [facility] Stop: 08/29/22 01:18 Last Admin: 07/30/22 11:56 Dose: 100 mls/hr Nitroglycerin (Nitroglycerin Sl 0.4 Mg/Tab Tab) 0.4 mg SL UD PRN PRN Reason: Chest Pain Stop: 08/29/22 01:18 Ondansetron HCl (Ondansetron Inj 2 Mg/Ml 2 Ml Vial) 4 mg IV Q6H PRN PRN Reason: Nausea Stop: 08/29/22 01:18 Tamsulosin HCl (Tamsulosin Hcl 0.4 Mg Cap) 0.8 mg PO QAM [facility] Stop: 08/29/22 08:59 Last Admin: 07/30/22 09:00 Dose: 0.8 mg Venlafaxine HCl (Venlafaxine Hcl Xr 37.5 Mg Capxr) 37.5 mg PO QAM [facility] Stop: 08/29/22 08:59 Last Admin: 07/30/22 08:59 Dose: 37.5 mg (1) Nausea and vomiting Vomiting type: unspecified Qualified Code(s): R11.2 - Nausea with vomiting, unspecified
--- NOTE | 2022-07-30 14:06 | Electrocardiogram Report ---
Test Reason : Blood Pressure : / mmHG Vent. Rate : 095 BPM Atrial Rate : 095 BPM P-R Int : 168 ms QRS Dur : 070 ms QT Int : 326 ms P-R-T Axes : 036 017 002 degrees QTc Int : 409 ms Normal sinus rhythm Low voltage QRS Nonspecific T wave abnormality Abnormal ECG When compared with ECG of 20-MAR-2015 14:25, T wave inversion now evident in Inferior leads Nonspecific T wave abnormality has replaced inverted T waves in Anterior leads T wave amplitude has decreased in Lateral leads Confirmed by Ifeanyi Gutierres ([id number]) on 07/30/2022 2:05:56 PM Referred By: REFERRED SELF Confirmed By:Ifeanyi Gutierres
--- NOTE | 2022-07-30 14:17 | Electrocardiogram Report ---
Test Reason : Blood Pressure : / mmHG Vent. Rate : 094 BPM Atrial Rate : 094 BPM P-R Int : 160 ms QRS Dur : 070 ms QT Int : 320 ms P-R-T Axes : 040 003 050 degrees QTc Int : 400 ms Poor data quality, interpretation may be adversely affected Normal sinus rhythm Low voltage QRS Nonspecific T wave abnormality Abnormal ECG When compared with ECG of 29-JUL-2022 20:16, (unconfirmed) Nonspecific T wave abnormality has replaced inverted T waves in Inferior leads T wave inversion now evident in Lateral leads Confirmed by Ifeanyi Gutierres ([id number]) on 07/30/2022 2:16:55 PM Referred By: REFERRED SELF Confirmed By:Ifeanyi Gutierrse
[2022-07-30 18:05] LABS: Adenovirus F 40/41 PCR Not Detected (NotDetected); Astrovirus PCR Not Detected (NotDetected); Campylobacter PCR Not Detected (NotDetected); Cryptosporidium PCR Not Detected (NotDetected); Cyclospora cayetanensis PCR Not Detected (NotDetected); Entamoeba histolytica PCR Not Detected (NotDetected); Enteroaggregative E.coli(EAEC) Not Detected (NotDetected); Enteropathogenic E.coli (EPEC) Not Detected (NotDetected); Enterotoxigenic E.coli (ETEC) Not Detected (NotDetected); Giardia lamblia PCR Not Detected (NotDetected); Plesiomonas shigelloides PCR Not Detected (NotDetected); Rotavirus A PCR Not Detected (NotDetected); Salmonella PCR Not Detected (NotDetected); Sapovirus PCR Not Detected (NotDetected); Shiga-like Toxin E.coli (STEC) Not Detected (NotDetected); Shigella/Enteroinvasive E.coli Not Detected (NotDetected); Vibrio cholerae PCR Not Detected (NotDetected); Vibrio species PCR Not Detected (NotDetected); Yersinia enterocolitica PCR Not Detected (NotDetected)
[2022-07-30 18:07] LABS: Norovirus GI/GII PCR DETECTED (NotDetected)
[2022-07-31 04:23] LABS: Basophils # (auto) 0.03 K/uL (0-0.2); Basophils % (auto) 0.5 %; Eosinophils # (auto) 0.06 K/uL (0-0.50); Hemoglobin 13.7 g/dl (14.0-18.0); Immature Granulocytes # (auto) 0.02 K/uL (0.01-0.20); Immature Granulocytes % (auto) 0.3 %; Lymphocytes # (auto) 0.76 K/uL (1.2-3.4); Lymphocytes % (auto) 13.1 %; Mean Corpuscular Hemoglobin 31.7 pg (25.0-34.0); Mean Corpuscular Hgb Conc 34.3 g/dL (32.0-36.0); Mean Corpuscular Volume 92.6 fL (80.0-100.0); Mean Platelet Volume 9.1 fL (9.4-12.4); Monocytes # (auto) 0.47 K/uL (0.11-0.59); Monocytes % (auto) 8.1 %; Neutrophils # (auto) 4.48 K/uL (1.40-6.50); Platelet Count 142 K/uL (130-400); RDW Coefficient of Variation 12.6 % (11.5-14.5); RDW Standard Deviation 43.1 fL (36.4-46.3); Red Blood Count 4.32 M/uL (4.70-6.10); White Blood Count 5.82 K/ul (4.8-10.8)
[2022-07-31 04:46] LABS: BUN Creatinine Ratio 7.3 (10-20); Calcium 7.9 mg/dl (8.5-10.1); Creatinine Clr Calc Pharmacy 65.7 ml/min; Est GFR (African American) 55.4 ml/min; Est GFR (Non-African American) 47.8 ml/min; Potassium 3.8 mmol/L (3.5-5.1)
[2022-07-31] MEDS: SODIUM CHLORIDE 0.9% 1000ML 1,000 ML IV SCH ×2 (08:59→17:23)
[2022-07-31] MEDS: VENLAFAXINE HCL XR 37.5 MG CAPXR PO SCH (09:00)
[2022-07-31] MEDS: TAMSULOSIN HCL 0.4 MG CAP PO SCH (09:00)
--- NOTE | 2022-07-31 12:03 | Electrocardiogram Report ---
Test Reason : Blood Pressure : / mmHG Vent. Rate : 101 BPM Atrial Rate : 101 BPM P-R Int : 164 ms QRS Dur : 070 ms QT Int : 324 ms P-R-T Axes : 046 -01 -06 degrees QTc Int : 420 ms Sinus tachycardia Low voltage QRS Septal infarct , age undetermined Abnormal ECG When compared with ECG of 30-JUL-2022 08:05, Septal infarct is now Present Inverted T waves have replaced nonspecific T wave abnormality in Inferior leads T wave inversion no longer evident in Lateral leads Confirmed by Ifeanyi Gutierres ([id number]) on 07/31/2022 12:02:59 PM Referred By: REFERRED SELF Confirmed By:Ifeanyi Gutierres
[2022-07-31 13:19] LABS: BUN Creatinine Ratio 7.1 (10-20); Calcium 8.1 mg/dl (8.5-10.1); Est GFR (African American) 53.7 ml/min; Est GFR (Non-African American) 46.3 ml/min; Potassium 3.6 mmol/L (3.5-5.1)
[2022-07-31] MEDS ORDERED: LOPERAMIDE HCL 2 MG CAP PO PRN (14:36)
--- NOTE | 2022-07-31 14:40 | Hospitalist Progress Note ---
Date of Service July 31, 2022 Assessment & Plan (1) Syncope: Plan: He was admitted with syncopal episode following bouts of gastroenteritis associated with nausea vomiting and diarrhea Has been feeling much better since admission No arrhythmias identified and no ACS and no orthostatic changes are noted Syncope was likely secondary to vasovagal due to dehydration We will get PT and OT evaluation and possible discharge tomorrow Remains stable but having tachycardia and ongoing diarrhea No more syncope (2) Gastroenteritis: Plan: Gastroenteritis in the family Has had an attack of gastroenteritis yesterday with associated syncope as mentioned earlier Has norovirus infection Still having diarrhea-we will try Imodium (3) Nausea and vomiting: Plan: Secondary to gastroenteritis which has resolved (4) Hypoxia: Plan: Possible mild aspiration from vomiting Does not require any treatment Condition resolved (5) Chronic kidney disease, stage 3: Plan: Kidney function is minimally better following fluid administration Kidney function is worse today with creatinine went up to 1.5 and repeat test came back to 1.54 Not safe to be discharged today Will administer intravenous fluid and advised to drink more fluid Will give Imodium to control diarrhea and check electrolytes Discharge tomorrow (6) Generalized anxiety disorder with panic attacks: Plan: Continue current medications (7) BPH (benign prostatic hyperplasia): Plan DVT prophylaxis Subcu heparin CODE STATUS Full Admission and Anticipated Discharge Date Admission Date: July 30, 2022 Subjective 07/30/2022 The patient was seen and examined in ICU He has been feeling much better since admission Denies any more nausea, vomiting or diarrhea since admission No more syncope and no arrhythmias identified 07/31/2022 The patient was seen and examined in ICU She has been feeling much better but is still having diarrhea about 3 or 4 times since this morning Still has tachycardia Denies any abdominal pain, nausea or vomiting Review of Systems Review of Systems: All systems reviewed and are unremarkable except as noted below Respiratory: No shortness of breath Cardiovascular: Additional Comments: No palpitation and/or chest pain Gastrointestinal: Denies any nausea and/or vomiting Physical Exam Physical Exam: Lying in bed comfortably with flushed facies Constitutional: well developed, well nourished, + ill appearing and + obese Eyes: PERRL, conjunctivae normal, anicteric sclerae ENMT: external ear and nose normal, oropharynx normal Neck: trachea midline, no thyromegaly Respiratory: normal respiratory effort, lungs clear to auscultation Cardiovascular: Rate/Rhythm: regular rate and regular rhythm; not tachycardic Heart Sounds: normal S1 and normal S2; no murmur Extremities: no edema Gastrointestinal (Abdomen): Inspection/Auscultation: normal bowel sounds; abdomen not distended Percussion/Palpation: abdomen soft; abdomen nontender Musculoskeletal: No acute arthritis involving any joint Neurologic: normal touch/pain/proprioception, moves all extremities and + focal motor deficit Psychiatric: A+Ox3, euthymic affect Lymphatic: no cervical or axillary lymphadenopathy Results & Data Results & Data ([facility]) Vital Signs (Past 12 Hours) Vital Signs Temp Pulse Resp BP Pulse Ox O2 Del Method 07/31/22 12:28 103 H 20 115/78 94 07/31/22 12:55 36.9 C 07/31/22 07:37 102 H 22 105/73 95 Room Air 07/31/22 07:37 36.8 C 07/31/22 06:00 104 H 21 91 07/31/22 05:00 114 H 11 L 84 L 07/31/22 04:00 116 H 14 89 L 07/31/22 04:00 106/74 07/31/22 03:00 116 H 28 H 89 L 07/31/22 03:00 36.9 C Laboratory Results Short CBC 07/31/22 Range/Units 04:13 WBC 5.82 (4.8-10.8) K/ul Hgb 13.7 L (14.0-18.0) g/dl Hct 40.0 L (42.0-52.0) % Plt Count 142 (130-400) K/uL [facility] 07/31/22 07/31/22 04:13 12:45 Sodium 139 140 Potassium 3.8 3.6 Chloride 108 H 109 H Carbon Dioxide 28 29 BUN 11 11 Creatinine 1.50 H 1.54 H Glucose 94 97 Calcium 7.9 L 8.1 L Medications Administered Current Inpatient Medications Acetaminophen (Acetaminophen 325 Mg Tab) 650 mg PO Q4H PRN PRN Reason: Pain or Fever Stop: 08/29/22 01:18 Sodium Chloride (Nss 1000ml) 1,000 mls @ 125 mls/hr IV .Q8H [facility] Stop: 08/01/22 07:59 Last Admin: 07/31/22 08:59 Dose: 125 mls/hr Loperamide HCl (Loperamide Hcl 2 Mg Cap) 2 mg PO Q3H PRN PRN Reason: Diarrhea Stop: 08/30/22 14:35 Nitroglycerin (Nitroglycerin Sl 0.4 Mg/Tab Tab) 0.4 mg SL UD PRN PRN Reason: Chest Pain Stop: 08/29/22 01:18 Ondansetron HCl (Ondansetron Inj 2 Mg/Ml 2 Ml Vial) 4 mg IV Q6H PRN PRN Reason: Nausea Stop: 08/29/22 01:18 Tamsulosin HCl (Tamsulosin Hcl 0.4 Mg Cap) 0.[address] [facility] Stop: 08/29/22 08:59 Last Admin: 07/31/22 09:00 Dose: 0.8 mg Venlafaxine HCl (Venlafaxine Hcl Xr 37.5 Mg Capxr) 37.[address] [facility] Stop: 08/29/22 08:59 Last Admin: 07/31/22 09:00 Dose: 37.5 mg (1) Nausea and vomiting Vomiting type: unspecified Qualified Code(s): R11.2 - Nausea with vomiting, unspecified
[2022-08-01] MEDS: SODIUM CHLORIDE 0.9% 1000ML 1,000 ML IV SCH (01:35)
[2022-08-01] MEDS ORDERED: Nursing to Pharmacy Communication SCH (01:45)
[2022-08-01] MEDS: TAMSULOSIN HCL 0.4 MG CAP PO SCH (08:16)
[2022-08-01] MEDS: VENLAFAXINE HCL XR 37.5 MG CAPXR PO SCH (08:16)
[2022-08-01 08:39] LABS: Basophils # (auto) 0.03 K/uL (0-0.2); Basophils % (auto) 0.6 %; Eosinophils # (auto) 0.09 K/uL (0-0.50); Eosinophils % (auto) 1.8 %; Hematocrit (blood only) 39.6 % (42.0-52.0); Hemoglobin 13.2 g/dl (14.0-18.0); Immature Granulocytes # (auto) 0.01 K/uL (0.01-0.20); Immature Granulocytes % (auto) 0.2 %; Lymphocytes # (auto) 1.71 K/uL (1.2-3.4); Lymphocytes % (auto) 33.5 %; Mean Corpuscular Hemoglobin 30.9 pg (25.0-34.0); Mean Corpuscular Hgb Conc 33.3 g/dL (32.0-36.0); Mean Corpuscular Volume 92.7 fL (80.0-100.0); Mean Platelet Volume 9.3 fL (9.4-12.4); Monocytes # (auto) 0.58 K/uL (0.11-0.59); Monocytes % (auto) 11.4 %; Neutrophils # (auto) 2.68 K/uL (1.40-6.50); Neutrophils % (auto) 52.5 %; Platelet Count 156 K/uL (130-400); RDW Coefficient of Variation 12.8 % (11.5-14.5); RDW Standard Deviation 43.8 fL (36.4-46.3); Red Blood Count 4.27 M/uL (4.70-6.10)
[2022-08-01 09:05] LABS: BUN Creatinine Ratio 6.7 (10-20); Calcium 8.1 mg/dl (8.5-10.1); Est GFR (Non-African American) 54.3 ml/min; Magnesium 1.9 mg/dl (1.7-2.4); Potassium 4.1 mmol/L (3.5-5.1)
--- NOTE | 2022-08-01 12:26 | Hospitalist Progress Note ---
Date of Service August 01, 2022 Assessment & Plan (1) Syncope: Plan: He was admitted with syncopal episode following bouts of gastroenteritis associated with nausea vomiting and diarrhea Has been feeling much better since admission No arrhythmias identified and no ACS and no orthostatic changes are noted Syncope was likely secondary to vasovagal due to dehydration We will get PT and OT evaluation and possible discharge tomorrow Remains stable but having tachycardia and ongoing diarrhea No more syncope Has had physical therapy without any difficulties (2) Gastroenteritis: Plan: Gastroenteritis in the family Has had an attack of gastroenteritis yesterday with associated syncope as mentioned earlier Has norovirus infection Still having diarrhea-we will try Imodium Completely resolved (3) Nausea and vomiting: Plan: Secondary to gastroenteritis which has resolved No more nausea no vomiting (4) Hypoxia: Plan: Possible mild aspiration from vomiting Does not require any treatment Condition resolved (5) Chronic kidney disease, stage 3: Plan: Kidney function is minimally better following fluid administration Kidney function is worse today with creatinine went up to 1.5 and repeat test came back to 1.54 Not safe to be discharged today Will administer intravenous fluid and advised to drink more fluid Will give Imodium to control diarrhea and check electrolytes Discharge tomorrow-CKD remained stable Will have usual appointment with the home care scheduler as an outpatient (6) Generalized anxiety disorder with panic attacks: Plan: Continue current medications (7) BPH (benign prostatic hyperplasia): Plan DVT prophylaxis Subcu heparin CODE STATUS Full Will be discharged home this afternoon Admission and Anticipated Discharge Date Admission Date: July 30, 2022 Subjective 07/30/2022 The patient was seen and examined in ICU He has been feeling much better since admission Denies any more nausea, vomiting or diarrhea since admission No more syncope and no arrhythmias identified 07/31/2022 The patient was seen and examined in ICU She has been feeling much better but is still having diarrhea about 3 or 4 times since this morning Still has tachycardia Denies any abdominal pain, nausea or vomiting 08/01/2022 The patient was seen and examined in medical floor He has been feeling much better and his kidney function is normalized There is no diarrhea, abdominal pain, nausea and or vomiting Review of Systems Review of Systems: All systems reviewed and are unremarkable except as noted below Respiratory: No shortness of breath Cardiovascular: Additional Comments: No palpitation and/or chest pain Gastrointestinal: Denies any nausea and/or vomiting Physical Exam Physical Exam: Lying in bed comfortably with flushed facies Constitutional: well developed, well nourished, + ill appearing and + obese Eyes: PERRL, conjunctivae normal, anicteric sclerae ENMT: external ear and nose normal, oropharynx normal Neck: trachea midline, no thyromegaly Respiratory: normal respiratory effort, lungs clear to auscultation Cardiovascular: Rate/Rhythm: regular rate and regular rhythm; not tachycardic Heart Sounds: normal S1 and normal S2; no murmur Extremities: no edema Gastrointestinal (Abdomen): Inspection/Auscultation: normal bowel sounds; abdomen not distended Percussion/Palpation: abdomen soft; abdomen nontender Neurologic: normal touch/pain/proprioception, moves all extremities and + focal motor deficit Psychiatric: A+Ox3, euthymic affect Lymphatic: no cervical or axillary lymphadenopathy Results & Data Results & Data ([facility]) Vital Signs (Past 12 Hours) Vital Signs Temp Pulse Resp BP Pulse Ox O2 Del Method 08/01/22 07:18 36.8 C 85 18 118/80 94 Room Air Laboratory Results Short CBC 08/01/22 Range/Units 08:11 WBC 5.10 (4.8-10.8) K/ul Hgb 13.2 L (14.0-18.0) g/dl Hct 39.6 L (42.0-52.0) % Plt Count 156 (130-400) K/uL BMP 08/01/22 08:11 Sodium 141 Potassium 4.1 Chloride 111 H Carbon Dioxide 29 BUN 9 Creatinine 1.35 Glucose 94 Calcium 8.1 L (1) Nausea and vomiting Vomiting type: unspecified Qualified Code(s): R11.2 - Nausea with vomiting, unspecified
--- NOTE | 2022-08-01 13:17 | Electrocardiogram Report ---
Test Reason : Blood Pressure : / mmHG Vent. Rate : 078 BPM Atrial Rate : 078 BPM P-R Int : 158 ms QRS Dur : 072 ms QT Int : 370 ms P-R-T Axes : 046 002 004 degrees QTc Int : 421 ms Normal sinus rhythm with sinus arrhythmia Low voltage QRS Borderline ECG When compared with ECG of 31-JUL-2022 06:45, No significant change was found Confirmed by Ifeanyi Gutierres ([id number]) on 08/01/2022 1:16:41 PM Referred By: REFERRED SELF Confirmed By:Ifeanyi Gutierres
--- NOTE | 2022-08-02 07:14 | Discharge Summary ---
Date of Service August 01, 2022 Admission HPI Per Admitting Provider DICTATED BY:Christian Tran MD DATE OF ADMISSION: 07/30/2022. CHIEF COMPLAINT: Syncope. HISTORY OF PRESENT ILLNESS: This is a 67-year-old male with a past medical history significant for stage III chronic kidney disease, cervical spondylosis, generalized osteoarthritis, difficult intubation, anxiety, panic disorder, history of tobacco abuse, currently not smoking, presents with syncope. The patient felt nauseous today morning and later in the evening around 8:00 p.m., he had a lot of vomiting and also several episodes of watery diarrhea 4-5 times and he was feeling very cold. He tried a jacket, then he felt very hot, he took off his jacket, then he felt very profusely sweating and he passed out, and when he woke up, he was confused for 2 to 3 minutes. Then ambulance was called and brought in here. When he came in, he was hypoxic at 86% to 87% on room air and currently on 1 liter he is saturating okay. The patient thinks when he vomited, his throat closed , which caused his hypoxia, but he does not feel any shortness of breath. No headache, no dizziness, no blurred visions, no earache, no runny nose, no sore throat. He has some cough with some phlegm starting today. Denies any fevers. No chest pain. Currently, no shortness of breath, no abdominal pain, no blood in the stools, the stools were a bit dark as per patient. Normal micturition. No swelling in the legs. Before all this happened he was active as per patient. The patient says he ate some frozen food today, but also he says since last 1 week his daughter and grandkids with whom he lives , one after the other became sick, with nausea and vomiting. Currently, resting comfortably and hemodynamically stable. Admission Exam Per Admitting Provider GENERAL: The patient is obese, not in acute distress. VITAL SIGNS: Temperature 36.9, pulse 103, respiratory rate 15, blood pressure 112/75, oxygen 95% on 1 liter. HEENT: Pupils equal, round, and reactive to light. Oral mucosa moist. NECK: No JVD, no neck masses. CARDIOVASCULAR: S1 and S2 heard. Regular rate and rhythm. No murmur, no gallop. RESPIRATORY SYSTEM: Normal AP diameter. No accessory muscle use. No wheezing or crackles. ABDOMEN: Soft, bowel sounds present, nontender, no distention. CENTRAL NERVOUS SYSTEM: Alert and oriented. Speech is clear. No facial droop. Obeys simple commands. Moves extremities. EXTREMITIES: No edema, no erythema. Principal Diagnosis Syncope likely secondary to vasovagal episode, gastroenteritis, dehydration Discharge Exam Lying in bed comfortably with flushed facies Constitutional well developed, well nourished, + ill appearing and + obese Eyes PERRL, conjunctivae normal, anicteric sclerae ENMT external ear and nose normal, oropharynx normal Neck trachea midline, no thyromegaly Respiratory normal respiratory effort, lungs clear to auscultation Cardiovascular Rate/Rhythm: regular rate and regular rhythm; not tachycardic Heart Sounds: normal S1 and normal S2; no murmur Extremities: no edema Gastrointestinal (Abdomen) Inspection/Auscultation: normal bowel sounds; abdomen not distended Percussion/Palpation: abdomen soft; abdomen nontender Neurologic normal touch/pain/proprioception, moves all extremities and + focal motor deficit Psychiatric A+Ox3, euthymic affect Lymphatic no cervical or axillary lymphadenopathy Discharge Data Allergies Allergy/AdvReac Type Severity Reaction Status Date / Time Sulfa (Sulfonamide Allergy Intermediate MOUTH Verified 07/29/22 20:54 Antibiotics) SORES, BLISTERS aspirin Allergy Unknown Unknown--? 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 Penicillins Allergy Unknown Unknown Verified 07/29/22 20:54 Consultations 07/29/22 23:33 ED Decision to Admit Stat 07/30/22 08:00 Consult Cardiology Routine Ordered Studies 07/29/22 22:02 CT abd pelvis IV con only Urgent CT angio chest PE protocol Urgent CT head/brain wo con Urgent Hospital Course (1) Syncope: He was admitted with syncopal episode following bouts of gastroenteritis associated with nausea vomiting and diarrhea Has been feeling much better since admission No arrhythmias identified and no ACS and no orthostatic changes are noted Syncope was likely secondary to vasovagal due to dehydration We will get PT and OT evaluation and possible discharge tomorrow Remains stable but having tachycardia and ongoing diarrhea No more syncope Has had physical therapy without any difficulties (2) Gastroenteritis: Gastroenteritis in the family Has had an attack of gastroenteritis yesterday with associated syncope as mentioned earlier Has norovirus infection Still having diarrhea-we will try Imodium Completely resolved (3) Nausea and vomiting: Secondary to gastroenteritis which has resolved No more nausea no vomiting (4) Hypoxia: Possible mild aspiration from vomiting Does not require any treatment Condition resolved (5) Chronic kidney disease, stage 3: Kidney function is minimally better following fluid administration Kidney function is worse today with creatinine went up to 1.5 and repeat test came back to 1.54 Not safe to be discharged today Will administer intravenous fluid and advised to drink more fluid Will give Imodium to control diarrhea and check electrolytes Discharge tomorrow-CKD remained stable Will have usual appointment with the manager building as an outpatient (6) Generalized anxiety disorder with panic attacks: Continue current medications (7) BPH (benign prostatic hyperplasia): Plan DVT prophylaxis Subcu heparin CODE STATUS Full Will be discharged home this afternoon Total Time Total Time Spent Total Time Spent (In Minutes): 35 minutes Discharge Plan Discharge Items Patient Disposition: Home - Self-Care Reason For Visit: SYNCOPE Discharge Diagnosis: Syncope likely secondary to vasovagal episode, gastroenteritis, dehydration Condition on Discharge: Good Activity: Resume your previous activity Non-emergency contact: Primary Care Provider Call non-emergency contact if: you have any medication questions and your symptoms worsen Follow-up/Referrals: Atif Nickerson MD [Primary Care Provider] - (Date & Time 08/04/2022 9:40 AM Provider Atif Nickerson III, MD Department [facility] ) Diet: Heart Healthy Addtl Attending Provider Instructions: Please take precautions to avoid fall Try to drink more fluid Have appointment with your healthcare providers Pending Studies at Discharge: No Stand-Alone Forms: My [facility] [employer], Smoking Cessation Medications and DC Order Prescriptions: Continued venlafaxine 37.5 mg capsule,extended release 24hr 37.5 mg PO QAM tamsulosin 0.4 mg Capsule 0.8 mg PO QAM Discharge Orders: Discharge Order (Routine); Ordered 08/01/22 Ordered By: Hyun Simons Admission Data Admit Date/Time: 07/30/22 00:39 Attending Provider: Hyun Simons Admit Provider: Christian Tran Primary Care Provider: Atif Nickerson Other Providers: Christian Tran ; Jose Carlos Etienne ; Garo Doyle ; Joby Goncalves ; Kyle Johnston ; Miguelangel Boucher ; Roland Singer ; Brandy Huddleston ; Misty Lovelace ; Sonya Franco ; Rayo Rasmussen Other Interventions: Discharge Summary Assessment (RN) Last Done: 08/01/22 13:26
== END 2022-08-01 14:19 | disposition home or self-care (01) | DRG 392 ==
LOC: ED 20:02 → EDINP 07-30 00:39 → 1E 07-30 05:16 → 3N 07-31 16:36